=== PATIENT | male | born 1965 | race Caucasian/White ===

== ENCOUNTER 2023-02-20 00:12 | Emergency (ER) | payer BC, MEDICARE ==
[~2023-02-20] VITALS: Ht 188 cm; Wt 95.3 kg
--- NOTE | 2023-02-20 00:40 | NUR ---
PT AMB TO [facility] 4B WITH C/O RASH ALL OVER BODY.
--- NOTE | 2023-02-20 01:00 | NUR ---
AT BEDSIDE FOR EVAL.
[2023-02-20] MEDS ORDERED: SULF1TAB48 PO (01:15)
[2023-02-20] MEDS ORDERED: NALO4SPR BNOSTRILS (01:15)
[2023-02-20] MEDS ORDERED: BLOO-1730 MC (01:15)
--- NOTE | 2023-02-20 01:15 | NUR ---
PT'S BS WAS 178. AWARE.
[2023-02-20] MEDS ORDERED: HYDR-3980 PO (01:24)
--- NOTE | 2023-02-20 01:45 | NUR ---
PT A.A AND O X 4 WITH BODY RASH,AND PAIN 5 /10 AND NAD OBSERVED..Patient discharged to home in stable condition. Written and verbal after care instructions given. Patient verbalizes understanding of instructions. Stressed follow up or return to ER for worsening s/s. PT AMB OUT WITH STEADY GAIT.
--- NOTE | 2023-02-20 02:01 | NUR ---
Patient discharged to home in stable condition. Written and verbal after care instructions given. Patient verbalizes understanding of instructions. Stressed follow up or return to ER for worsening s/s.
[2023-02-20 02:10] VITALS: BP 139/93
== END 2023-02-20 01:45 | disposition home or self-care (01) ==
LOC: ER 00:32
DX: L30.9 Dermatitis, unspecified (principal); E11.9 Type 2 diabetes mellitus without complications; G89.29 Other chronic pain; Z88.1 Allergy status to other antibiotic agents; Z88.5 Allergy status to narcotic agent; Z79.899 Other long term (current) drug therapy
CPT/HCPCS: A4663